=== PATIENT | female | born 1995 | race Asian ===

== ENCOUNTER 2019-03-16 14:25 | Emergency (ER) | payer SELFPAY ==
[~2019-03-16] VITALS: Ht 160 cm; Wt 55.0 kg
[~2019-03-16 14:25] MED LIST: NOCURR
[2019-03-16] MEDS ORDERED: CYCLOBENZAPRINE HCL 10 MG TABLET PO ONE (15:30)
[2019-03-16] MEDS ORDERED: KETOROLAC TROMETHAMINE 60 MG/2 ML VIAL IM ONE (15:30)
[2019-03-16 16:00] VITALS: BP 114/75
== END 2019-03-16 16:27 | disposition home or self-care (01) ==
LOC: EMS 14:27
DX: S13.4XXA Sprain of ligaments of cervical spine, initial encounter (principal); S40.011A Contusion of right shoulder, initial encounter; M54.6 Pain in thoracic spine; Z88.5 Allergy status to narcotic agent; V49.9XXA Car occupant (driver) (passenger) injured in unspecified traffic accident, initial encounter; Y93.89 Activity, other specified; Y92.481 Parking lot as the place of occurrence of the external cause; Y99.8 Other external cause status
CPT/HCPCS: 81002; 81025; 96372; 99283; J1885